=== PATIENT | female | born 1980 | race Caucasian/White ===

== ENCOUNTER → 2022-06-23 11:12 | Outpatient (BNVA) | payer SELFPAY | PROVIDERS: Visit Provider Family Medicine | DX: K42.9 Umbilical hernia without obstruction or gangrene (principal); Z76.89 Persons encountering health services in other specified circumstances | CPT/HCPCS: 80053; 80061; 83721; 84439; 84443; 85025 ==

== ENCOUNTER 2022-07-11 05:34 | Emergency (ER) | payer OTHER, SELFPAY ==
[2022-07-11 05:37] VITALS: BP 171/118; PULSE 111; RESP 18; TEMP 36.5; O2SAT 100; BMI 33.1
[2022-07-11 05:40] VITALS: BP 170/104; PULSE 115; RESP 18; O2SAT 99
--- NOTE | 2022-07-11 05:45 | ECG_ITS ---
[facility] Test Date: 2022-07-11 Pat Name: Tasha iWnn Department: Room: Gender: Female Rhit: : 1980 Requested By: Jae Maxwell Order Number: [id number] Gela MD: Reggie Shetty M.D. Measurements Intervals [place] Rate: 111 P: 30 RI: 116 QRS: 56 QRSD: 95 T: 27 QT: 322 QTc: 438 Interpretive Statements SINUS TACHYCARDIA WITH SHORT RI INTERVAL LOW QRS VOLTAGE IN PRECORDIAL LEADS [QRS DEFLECTION < 1.0 mV IN CHEST LEADS] ABNORMAL RHYTHM ECG No previous ECG available for comparison Electronically Signed On 07-11-2022 7:26:55 CDT by Reggie Shetty M.D. [email or web address]
--- NOTE | 2022-07-11 06:07 | W.ED.NAVMDI ---
HPI - Nausea/Vomiting/Diarrhea General: Chief complaint: Nausea/Vomiting/Diarrhea Stated complaint: bp is high Time Seen by Provider: 07/11/22 05:48 Source: patient Mode of arrival: ambulatory History of Present Illness: 41-year-old female presents emergency room complaining of nausea for last couple days no vertiginous-like symptoms. No chest pain no shortness of breath no abdominal pain no dysuria urgency or frequency no fever sweats or chills no cough she has noticed her blood pressure is not. She has an umbilical hernia that causes some vague discomfort but no significant sharp pain. She has no known history of coronary disease or hypertension. She has not taken anything for blood pressure currently or in the past. She has not been using any decongestants nasal sprays. She does not regularly use any NSAIDs. She did take a single dose of Mucinex when she was not feeling well yesterday. She came in this morning because her blood pressure is elevated. She is not having difficulty with vision speech swallowing gait or sensation. MD elicited complaint: nausea Onset (ago): hour(s) Associated nausea: Yes Associated abdominal pain: No Severity: mild Exacerbating factors: none Relieving factors: none Associated symtoms: Reports nausea; Denies anxiety, bloating, change in vision, chest pain, cough, diaphoresis, decreased urine output, dizziness, dysuria, epistaxis, fatigue, fecal incontinence, fevers/chills, headache(s), anorexia, malaise, myalgias, numbness, palpitations, rash, short of breath, syncope, tenesmus, tinnitus or weakness Review of Systems Const: Denies: fever(s), chills, fatigue, malaise or diaphoresis Eyes: Denies: change in vision ENMT: Denies: tinnitus or epistaxis Card: Denies: chest pain, palpitations or syncope Resp: Denies: dyspnea, productive cough or non-productive cough GI: Reports: nausea; Denies: abdominal pain, vomiting, diarrhea, constipation, bloating, GI cramping or fecal incontinence : Denies: flank pain, difficulty voiding, dysuria, urinary frequency or urinary urgency Skin/Breast: Denies: rash or pruritus Neuro: Denies: headache(s) or dizziness Psych: Denies: anxiety PFSH ED PFSH: Medical History (Updated 07/11/22 @ 07:00 by Jae Merritt DO) Asthma Umbilical hernia Family History Grandmother Cancer Father Diabetes Hypertension Stroke Mother Hypertension Denies family history of CAD (coronary artery disease) Clotting disorder Dementia Hyperlipidemia Psychiatric illness Chronic kidney disease (CKD) Suicide Anesthesia complication Bleeding disorder Family history of premature coronary artery disease Lung disease Social History Smoking and tobacco status: current every day smoker Female Reproductive History: Date of last menstrual period: 06/12/22 Spontaneous abortions: No Physical Exam Const: COMMON NORMALS: no acute distress GENERAL APPEARANCE: cooperative and comfortable ORIENTATION/CONSCIOUSNESS: Yes awake, Yes oriented to person, Yes oriented to place and Yes oriented to time HENMT: COMMON NORMALS: normocephalic, atraumatic and hearing grossly normal bilaterally HEAD & SCALP: normocephalic and atraumatic Eye: COMMON NORMALS: Equal, round and reactive pupils present, EOMs intact bilaterally, conjunctivae normal, no scleral icterus and normal visual garnica by confrontation VISUAL ACUITY: Yes acuity normal VISUAL GARNICA: No peripheral vision loss CONJUNCTIVA: Yes conjunctivae normal PUPIL: Yes Equal, round and reactive pupils present EOM: No Nystagmus present Lymph: LYMPHATIC: no lymphadenopathy noted and no lymphedema noted Resp: COMMON NORMALS: normal respiratory effort, No retractions, No use of accessory muscles and clear to auscultation bilaterally AUSCULTATION: clear to auscultation bilaterally Cardio: COMMON NORMALS: regular rate, regular rhythm and No murmurs present (Cardio) RATE: regular rate RHYTHM: regular rhythm GI: COMMON NORMALS: Soft to palpation and No hepatosplenomegaly present AUSCULTATION: Yes normoactive bowel sounds PALPATION: Yes Soft to palpation, No Tenderness to palpation present (GI), No Guarding due to palpation present (GI) and Yes No hepatosplenomegaly present OTHER: non-incarcerated umbilical hernia Extremity: COMMON NORMALS: normal to inspection, capillary refill normal, no clubbing, cyanosis or edema, no calf tenderness and no pedal edema Neuro: SENSORIUM/ORIENTATION: Yes oriented to person, Yes oriented to place and Yes oriented to time OTHER: No focal neurologic deficits are noted. Facial symmetry normal no visual field deficits sensation to extremity strength all intact. Skin: COMMON NORMALS: no rashes or lesions noted GENERAL SKIN EXAM: no rashes or lesions noted Course Vital Signs: Vital signs: Vital Signs Temperature 97.7 F 07/11/22 05:37 Pulse Rate 97 07/11/22 06:10 Respiratory Rate 17 07/11/22 06:10 Blood Pressure 141/85 07/11/22 06:10 Pulse Oximetry 99 07/11/22 05:40 Oxygen Delivery Me thod 07/11/22 05:40 MDM - Nausea/Vomiting/Diarrhea Medical Decision Making B/P improved after med given. Reccommend she follow up with her primary care physician to review BP in the next week. Medical Records I reviewed the patient's medical records. Lab Data I reviewed the patient's lab results. : 07/11/22 05:53 07/11/22 05:53 Laboratory Results WBC 9.3 10^3/uL (4.0-10.0) 07/11/22 05:53 RBC 4.63 10^6/uL (4.1-5.3) 07/11/22 05:53 Hgb 15.1 g/dL (11.5-15.3) 07/11/22 05:53 Hct 44.8 % (37.0-47.0) 07/11/22 05:53 MCV 96.8 fl (81-99) 07/11/22 05:53 MCH 32.6 pg (28.0-34.0) 07/11/22 05:53 MCHC 33.7 g/dL (30.0-36.0) 07/11/22 05:53 RDW 12.9 % (12.1-15.1) 07/11/22 05:53 Plt Count 351 10^3/cmm (130-400) 07/11/22 05:53 MPV 9.2 fL (7.4-10.4) 07/11/22 05:53 Neut % (Auto) 64.6 % 07/11/22 05:53 Lymph % (Auto) 27.5 % 07/11/22 05:53 [place] % (Auto) 5.1 % 07/11/22 05:53 Eos % (Auto) 1.6 % 07/11/22 05:53 Baso % (Auto) 1.0 % 07/11/22 05:53 Neut # (Auto) 5.99 10^3/uL (1.8-7.7) 07/11/22 05:53 Lymph # (Auto) 2.6 10^3/uL (0.8-4.8) 07/11/22 05:53 [place] # (Auto) 0.5 10^3/uL (0.2-0.9) 07/11/22 05:53 Eos # (Auto) 0.2 10^3/uL (0.0-0.8) 07/11/22 05:53 Baso # (Auto) 0.1 10^3/uL (0.0-0.1) 07/11/22 05:53 Nucleated RBC % (auto) 0 % 07/11/22 05:53 Nucleated RBCs # 0.0 /100WBC 07/11/22 05:53 Sodium 138 mmol/L (136-145) 07/11/22 05:53 Potassium 3.9 mmol/L (3.5-5.1) 07/11/22 05:53 Chloride 104 mmol/L (98-107) 07/11/22 05:53 Carbon Dioxide 24 mmol/L (22-29) 07/11/22 05:53 Anion Gap 13.9 (5-19) 07/11/22 05:53 BUN 12 mg/dL (6-20) 07/11/22 05:53 Creatinine 0.7 mg/dL (0.5-0.9) 07/11/22 05:53 GFR Calculation 92.2 mL/min (90-130) 07/11/22 05:53 Glucose 112 mg/dL (65-115) 07/11/22 05:53 Calculated Osmolality 287 mOsm/kg (285-295) 07/11/22 05:53 Calcium 9.2 mg/dL (8.5-10.5) 07/11/22 05:53 Total Bilirubin 0.2 mg/dL (0.15-1.2) 07/11/22 05:53 AST 32 U/L (0-32) 07/11/22 05:53 ALT 45 U/L (0-33) H 07/11/22 05:53 Alkaline Phosphatase 76 U/L (35-105) 07/11/22 05:53 C-Reactive Protein 3.0 mg/L (0.0-4.9) 07/11/22 05:53 Total Protein 7.0 g/dL (6.6-8.7) 07/11/22 05:53 Albumin 4.2 g/dL (3.5-5.2) 07/11/22 05:53 Globulin 2.8 g/dL (1.3-4.6) 07/11/22 05:53 Lipase 12 U/L (13-60) L 07/11/22 05:53 HCG, Qual Negative (Negative) 07/11/22 05:53 Discharge Plan Discharge Patient Disposition: Home Clinical Impression: Elevated blood pressure reading without diagnosis of hypertension Condition: Stable Prescriptions: No Action albuterol sulfate 90 mcg/actuation HFA aerosol inhaler 2 inh inhalation QID PRN (Reason: shortness of breath or wheezing) Qty: 8.5 0RF ondansetron 4 mg tablet,disintegrating 4 mg PO Q6H PRN (Reason: nausea and vomiting) Qty: 15 0RF Discharge Orders: Discharge ED (Routine); Ordered 07/11/22 Ordered By: Jae Merritt Discharge Diet: Usual diet Discharge Activity: Increase activity as tolerated Activity Restrictions/Additional Instructions: Follow-up with your primary care doctor within the next week to reevaluate your blood pressure. Coding Level of Care Code ED Power Line Installer for Chg Fwd Exam Comprehensive
[2022-07-11] MEDS: metoprolol succinate ER (24 HR) 25 mg Tablet 12.5 MG PO (06:08)
[2022-07-11 06:09] LABS: Basophils # 0.1 10^3/uL (0.0-0.1); Eosinophils # 0.2 10^3/uL (0.0-0.8); Eosinophils % 1.6 %; Hematocrit 44.8 % (37.0-47.0); Hemoglobin 15.1 g/dL (11.5-15.3); Lymphocytes # 2.6 10^3/uL (0.8-4.8); Lymphocytes % 27.5 %; Mean Corpuscular HGB Conc 33.7 g/dL (30.0-36.0); Mean Corpuscular Hemoglobin 32.6 pg (28.0-34.0); Mean Corpuscular Volume 96.8 fl (81-99); Mean Platelet Volume 9.2 fL (7.4-10.4); Monocytes # 0.5 10^3/uL (0.2-0.9); Monocytes % 5.1 %; Neutrophils # 5.99 10^3/uL (1.8-7.7); Neutrophils % 64.6 %; Nucleated Red Blood Cells % 0 %; Platelet Count 351 10^3/cmm (130-400); Red Blood Count 4.63 10^6/uL (4.1-5.3); Red Cell Distribution Width 12.9 % (12.1-15.1); White Blood Count 9.3 10^3/uL (4.0-10.0)
[2022-07-11] MEDS: metoprolol tartrate 1 mg/1 mL SDV 5 mL 2.5 MG IVP (06:09)
[2022-07-11 06:10] VITALS: BP 141/85; PULSE 97; RESP 17
[2022-07-11 06:21] LABS: HCG, Serum Qual Negative (Negative)
[2022-07-11 06:26] LABS: Alanine Aminotransferase 45 U/L (0-33); Albumin Level 4.2 g/dL (3.5-5.2); Alkaline Phosphatase 76 U/L (35-105); Anion Gap 13.9 (5-19); Aspartate Amino Transferase 32 U/L (0-32); Blood Urea Nitrogen 12 mg/dL (6-20); Calcium 9.2 mg/dL (8.5-10.5); Carbon Dioxide 24 mmol/L (22-29); Chloride 104 mmol/L (98-107); Globulin 2.8 g/dL (1.3-4.6); Glomerular Filtration Rate 92.2 mL/min (90-130); Glucose 112 mg/dL (65-115); Lipase 12 U/L (13-60); Osmolality Calculated 287 mOsm/kg (285-295); Potassium 3.9 mmol/L (3.5-5.1); Sodium 138 mmol/L (136-145); Total Bilirubin 0.2 mg/dL (0.15-1.2)
[2022-07-11 07:12] VITALS: BP 126/84; PULSE 89; RESP 18; O2SAT 96
== END 2022-07-11 07:13 | disposition home or self-care (01) ==
PROVIDERS: Emergency Medicine; Emergency Provider Family Medicine
DX: R03.0 Elevated blood-pressure reading, without diagnosis of hypertension (principal); F17.210 Nicotine dependence, cigarettes, uncomplicated
CPT/HCPCS: 80053; 83690; 84703; 85025; 86140; 93005; 96374; 99284; J3490

== ENCOUNTER 2023-01-13 14:48 | Outpatient (CLI) | payer OTHER, SELFPAY ==
--- NOTE | 2023-01-13 15:15 | USCV_ITS ---
Tasha Winn Age: 42 Gender: F : 1980 Exam Date: 01/13/2023 15:01 Ordering Phys: Roc Orantes DO Technologist: Exam Location: [facility] [place] Indication: left leg pain, swelling Risk Factors: Unknown Previous Vascular Surgery: None RIGHT LEFT BP: 120.0 / 70.00 BP: 120.0/ 70.00 0 0 Waveform Velocity (cm/s) Velocity (cm/s) Waveform Iliac Prox 114.7 Triphasic Iliac Mid 109.2 Triphasic Iliac Distal 105.3 Triphasic CONDOMINIUM MANAGER 99.2 Triphasic SFA Prox 113.6 Triphasic SFA Mid 113.6 Triphasic SFA Dist 97.0 Triphasic POP 65.1 Triphasic SUEDE CLEANER 77.2 Triphasic DPA 54.0 Triphasic HANNAH 1.0 FINDINGS RT DPA 120 RT SUEDE CLEANER 120 LEFT [id number] LEFT SUEDE CLEANER 120 The arterial duplex examination was performed only on the left lower extremity. The resting HANNAH was 1.0 on the left side. Normal arterial Doppler waveforms and Doppler velocities. CONCLUSIONS 1. Normal resting HANNAH, arterial Doppler waveforms and Doppler flow velocities on the left side, suggesting no significant arterial obstruction Dr Sherice Bradshaw MD [facility] (Electronically Signed) Final Date: 14 January 2023 14:01 S
== END 2023-01-13 14:49 | disposition home or self-care (01) ==
LOC: RAD 14:52
PROVIDERS: PCP Family Medicine; Visit Provider Family Medicine
DX: M79.89 Other specified soft tissue disorders (principal); M79.605 Pain in left leg
CPT/HCPCS: 93926

== ENCOUNTER → 2023-01-19 08:51 | Outpatient (BNVA) | payer OTHER, SELFPAY | PROVIDERS: PCP Family Medicine; Visit Provider Family Medicine | DX: M79.89 Other specified soft tissue disorders (principal) | CPT/HCPCS: 80048; 84443; 84550 ==

== ENCOUNTER → 2023-03-13 07:58 | Outpatient (BNVA) | payer OTHER, SELFPAY | PROVIDERS: PCP Family Medicine; Visit Provider Nurse Practitioner Family | DX: R68.89 Other general symptoms and signs (principal) | CPT/HCPCS: 87400 ==

== ENCOUNTER 2023-06-06 05:24 | Emergency (ER) | payer OTHER, SELFPAY ==
[2023-06-06 05:31] VITALS: BP 149/104; PULSE 112; RESP 18; TEMP 36.9; O2SAT 98; BMI 35.4
[2023-06-06 05:35] VITALS: BP 149/104; PULSE 110; RESP 16; O2SAT 100
--- NOTE | 2023-06-06 05:57 | ED_ITS ---
HPI - General Adult General: Chief complaint: General Medical Stated complaint: N\V\Pressure in Ears Time Seen by Provider: 06/06/23 05:44 Source: patient Mode of arrival: ambulatory History of Present Illness: 42-year-old female presents emergency room with 2 to 3 days of ear fullness congestion dizziness. It has made her little bit sick to her stomach at times. No difficulty speech swallowing or gait. No shortness of breath or cough. She has had a couple of episodes of vomiting no hematemesis or coffee-ground emesis. Onset (ago): day(s) Exacerbating factors: none Associated symptoms: Reports vomiting; Deny chest pain, confusion, cough, diaphoresis, decreased appetite, dyspnea, fevers/chills, headache(s), malaise, nausea, rash, palpitations, seizures, short of breath, syncope, weakness or other Treatments prior to arrival: none Review of Systems Const: Denies: fever(s), chills, malaise or diaphoresis ENMT: Reports: ear or mastoid pain and ear discharge; Denies: throat pain, nasal discharge or nasal congestion Card: Denies: chest pain, palpitations or syncope Resp: Denies: dyspnea GI: Reports: vomiting; Denies: abdominal pain or nausea : Denies: flank pain, difficulty voiding, dysuria, urinary frequency or urinary urgency Skin/Breast: Denies: rash Neuro: Denies: headache(s) or confusion PFS ED PFSH: Medical History Asthma Umbilical hernia Family History Grandmother Cancer Father Diabetes Hypertension Stroke Mother Hypertension Denies family history of CAD (coronary artery disease) Clotting disorder Dementia Hyperlipidemia Psychiatric illness Chronic kidney disease (CKD) Suicide Anesthesia complication Bleeding disorder Family history of premature coronary artery disease Lung disease Social History Smoking and tobacco status: never smoked Female Reproductive History: Date of last menstrual period: 06/06/23 Spontaneous abortions: No Physical Exam Const: GENERAL APPEARANCE: cooperative and comfortable ORIENTATION/CONSCIOUSNESS: Yes awake, Yes oriented to person, Yes oriented to place and Yes oriented to time HENMT: COMMON NORMALS: normocephalic, atraumatic, hearing grossly normal bilaterally, external ears normal, EAC's normal, Normal nasal mucous membranes and turbinates present, moist oral mucous membranes and oropharynx normal HEAD & SCALP: normocephalic and atraumatic NOSE: Normal nasal mucous membranes and turbinates present EXTERNAL EAR: Yes external ears normal EXTERNAL AUDITORY CANAL: EAC's normal TYMPANIC MEMBRANE: TM abnormal TM laterality: bilateral bulging, wth effusion and with fluid behind the TM Eye: COMMON NORMALS: Equal, round and reactive pupils present, EOMs intact bilaterally, conjunctivae normal and no scleral icterus CONJUNCTIVA: Yes conjunctivae normal PUPIL: Yes Equal, round and reactive pupils present Neck/C-Spine: COMMON NORMALS: full ROM, no lymphadenopathy, supple and no JVD Lymph: LYMPHATIC: no lymphadenopathy noted and no lymphedema noted Resp: COMMON NORMALS: normal respiratory effort, No retractions, No use of accessory muscles and clear to auscultation bilaterally AUSCULTATION: clear to auscultation bilaterally Cardio: COMMON NORMALS: no JVD, regular rate, regular rhythm and No murmurs present (Cardio) RATE: regular rate RHYTHM: regular rhythm GI: COMMON NORMALS: Soft to palpation and No hepatosplenomegaly present AUSCULTATION: Yes normoactive bowel sounds PALPATION: Yes Soft to palpation, No Tenderness to palpation present (GI), No Guarding due to palpation present (GI) and Yes No hepatosplenomegaly present Extremity: COMMON NORMALS: normal to inspection, capillary refill normal, no clubbing, cyanosis or edema, no calf tenderness and no pedal edema Neuro: SENSORIUM/ORIENTATION: Yes oriented to person, Yes oriented to place and Yes oriented to time Skin: COMMON NORMALS: no rashes or lesions noted GENERAL SKIN EXAM: no rashes or lesions noted Course Vital Signs: Vital signs: Vital Signs Temperature 98.5 F 06/06/23 06:17 Pulse Rate 93 06/06/23 06:17 Respiratory Rate 16 06/06/23 06:17 Blood Pressure 133/89 06/06/23 06:17 Pulse Oximetry 98 06/06/23 06:17 Oxygen Delivery Me thod Room Air 06/06/23 05:31 [facility] - General Adult Medical Decision Making Bilateral fluid effusions with mild erythema. Started on oral antibiotics for 10 days. Follow-up with primary care if not improving or has any worsening. Medical Records I reviewed the patient's medical records. Discharge Plan Discharge Patient Disposition: Home Clinical Impression: Otitis media Condition: Stable Prescriptions: New amoxicillin 875 mg tablet 875 mg PO BID Qty: 20 0RF No Action fluticasone propionate [Flonase Allergy Relief] 50 mcg/actuation spray,suspension 2 spray intranasal DAILY Rx Instructions: administer into each nostril prednisone 20 mg tablet 20 mg PO DAILY 3 Days Qty: 3 0RF albuterol sulfate 90 mcg/actuation HFA aerosol inhaler See Rx Instructions .ROUTE .COMPLEX Qty: 8.5 0RF Dose Instruction: INHALE 2 PUFFS FOUR TIMES DAILY NEEDED FOR SHORTNESS OF BREATH OR WHEEZING. Rx Instructions: INHALE 2 PUFFS FOUR TIMES DAILY NEEDED FOR SHORTNESS OF BREATH OR WHEEZING. montelukast 10 mg tablet See Rx Instructions .ROUTE .COMPLEX Qty: 30 0RF Dose Instruction: TAKE 1 TABLET BY MOUTH DAILY Rx Instructions: TAKE 1 TABLET BY MOUTH DAILY Discharge Orders: Discharge ED (Routine); Ordered 06/06/23 Ordered By: Jae Merritt Referrals: Roc Orantes DO [Primary Care Provider] - Patient Instructions: Opioid Safety, Pain Management Activity Restrictions/Additional Instructions: If not improving follow-up with your primary care doctor. Coding Level of Care Code ED Medical Office Secretary for Murtaza Briceño
[2023-06-06 06:15] VITALS: BP 133/89; PULSE 93; RESP 16; O2SAT 98
[2023-06-06 06:17] VITALS: BP 133/89; PULSE 93; RESP 16; TEMP 36.9; O2SAT 98
== END 2023-06-06 06:18 | disposition home or self-care (01) ==
PROVIDERS: Emergency Provider Family Medicine; PCP Family Medicine
DX: H66.90 Otitis media, unspecified, unspecified ear (principal)
CPT/HCPCS: 99283

== ENCOUNTER 2023-06-19 09:51 | Emergency (ER) | payer OTHER, SELFPAY ==
[2023-06-19 10:03] VITALS: BP 157/97; PULSE 108; RESP 17; TEMP 37.3; O2SAT 96; BMI 34.7
--- NOTE | 2023-06-19 10:20 | CT_ITS ---
WS: [id number] CT HEAD TECHNIQUE: Noncontrast CT of the head obtained from the skullbase to the vertex. CLINICAL INFORMATION: dizziness, sanford, heaviness in head COMPARISON: MRI 2008 DLP: 1116.[address] scans at [facility] use at least one of these dose optimization techniques: automated e xposure control; mA and/or kV adjustment per patient size (includes targeted exams where dose is matc hed to clinical indication); or iterative reconstruction. FINDINGS: No evidence of intracranial hemorrhage or mass effect. Ventricular system and basal cisterns are silva nt. No extra-axial fluid collections. No evidence of mass or mass effect. Normal candelario-white different iation. Paranasal sinuses and mastoid air cells are well aerated. .Normal visualized soft tissues. CT/CT head wo con* [id number] IMPRESSION: 1. No evidence of intracranial hemorrhage or mass effect. 2. No acute intracranial findings.
[2023-06-19 10:41] VITALS: BP 156/102; PULSE 106; O2SAT 95
[2023-06-19 10:44] LABS: Basophils # 0.1 10^3/uL (0.0-0.1); Basophils % 0.6 %; Eosinophils # 0.2 10^3/uL (0.0-0.8); Eosinophils % 1.3 %; Hematocrit 43.5 % (37.0-47.0); Hemoglobin 14.7 g/dL (11.5-15.3); Lymphocytes # 4.3 10^3/uL (0.8-4.8); Lymphocytes % 25.9 %; Mean Corpuscular HGB Conc 33.8 g/dL (30.0-36.0); Mean Corpuscular Hemoglobin 31.9 pg (28.0-34.0); Mean Corpuscular Volume 94.4 fl (81-99); Mean Platelet Volume 8.7 fL (7.4-10.4); Monocytes # 0.8 10^3/uL (0.2-0.9); Monocytes % 4.7 %; Neutrophils % 66.7 %; Nucleated Red Blood Cells % 0 %; Platelet Count 357 10^3/cmm (130-400); Red Blood Count 4.61 10^6/uL (4.1-5.3); Red Cell Distribution Width 12.9 % (12.1-15.1); White Blood Count 16.7 10^3/uL (4.0-10.0)
--- NOTE | 2023-06-19 10:55 | ED_ITS ---
HPI - Dizziness General: Chief Complaint: Dizziness Stated Complaint: high bp Time Seen by Provider: 06/19/23 10:18 History of Present Illness: HPI Narrative: Patient presents to the ER with complaints of dizziness and lightheadedness for at least 2 weeks. Patient states that this is intermittent and getting better and getting worse but not totally going away. Patient does states she has had spells of diaphoresis during these time periods she also went to see her doctor last Monday and was put on an antibiotic and a steroid for possible ear infection she has completed and both with no major improvements in her head. Patient does admit to having high blood pressure with the highest being approximately 160/120 and a fast heart rate in the 100s. Review of Systems General: Reports: 10 or more systems reviewed and unremarkable except in HPI and below PFSH ED PFSH: Medical History Asthma Umbilical hernia Family History Grandmother Cancer Father Diabetes Hypertension Stroke Mother Hypertension Denies family history of CAD (coronary artery disease) Clotting disorder Dementia Hyperlipidemia Psychiatric illness Chronic kidney disease (CKD) Suicide Anesthesia complication Bleeding disorder Family history of premature coronary artery disease Lung disease Social History Smoking and tobacco status: never smoked Female Reproductive History: Spontaneous abortions: No Physical Exam Const: COMMON NORMALS: no acute distress, average body habitus, patient oriented x3, no limitations, healthy appearing, alert and well nourished HENMT: COMMON NORMALS: normocephalic, atraumatic, hearing grossly normal bilaterally, external ears normal, EAC's normal, TM's normal bilaterally, Normal external nose present, Normal nasal mucous membranes and turbinates present, moist oral mucous membranes and oropharynx normal HEAD & SCALP: normocephalic and atraumatic NOSE: Normal external nose present and Normal nasal mucous membranes and turbinates present EXTERNAL EAR: Yes external ears normal EXTERNAL AUDITORY CANAL: EAC's normal TYMPANIC MEMBRANE: TM's normal bi laterally Eye: COMMON NORMALS: Equal, round and reactive pupils present, EOMs intact bilaterally, conjunctivae normal, no scleral icterus and no papilledema CONJUNCTIVA: Yes conjunctivae normal PUPIL: Yes Equal, round and reactive pupils present DIRECT OPHTHALMOSCOPY: Yes no papilledema Neuro: COMMON NORMALS: patient oriented x3 SENSORIUM/ORIENTATION: Yes alert Course Vital Signs: Vital signs: Vital Signs Temperature 99.1 F 06/19/23 10:03 Pulse Rate 102 H 06/19/23 11:37 Respiratory Rate 18 06/19/23 11:37 Blood Pressure 133/89 06/19/23 11:37 Pulse Oximetry 94 06/19/23 11:37 Oxygen Delivery Me thod Room Air 06/19/23 11:37 MDM - Dizziness Medical Decision Making Patient presents to the ER with several week history of being lightheaded dizzy. Patient's failed outpatient therapy of steroids and antibiotics for this. Patient had similar episode years in the past when she took meclizine for which seem to work pretty decent. Lab work was reviewed patient a white count is slightly elevated at 16 which is thought to be due to her recent steroid use otherwise rest of her blood work and head CT was negative. Patient will be discharged with a diagnosis of vertigo and be given more meclizine to take on an as-needed basis. Patient is to follow-up with her PCP. Lab Data 06/19/23 10:35 06/19/23 10:[address] 06/19/23 10:20 IMPRESSION: 1. No evidence of intracranial hemorrhage or mass effect. 2. No acute intracranial findings. Laboratory Results WBC 16.7 10^3/uL (4.0-10.0) H 06/19/23 10:35 RBC 4.61 10^6/uL (4.1-5.3) 06/19/23 10:35 Hgb 14.7 g/dL (11.5-15.3) 06/19/23 10:35 Hct 43.5 % (37.0-47.0) 06/19/23 10:35 MCV 94.4 fl (81-99) 06/19/23 10:35 MCH 31.9 pg (28.0-34.0) 06/19/23 10:35 MCHC 33.8 g/dL (30.0-36.0) 06/19/23 10:35 RDW 12.9 % (12.1-15.1) 06/19/23 10:35 Plt Count 357 10^3/cmm (130-400) 06/19/23 10:35 MPV 8.7 fL (7.4-10.4) 06/19/23 10:35 Neut % (Auto) 66.7 % 06/19/23 10:35 Lymph % (Auto) 25.9 % 06/19/23 10:35 [place] % (Auto) 4.7 % 06/19/23 10:35 Eos % (Auto) 1.3 % 06/19/23 10:35 Baso % (Auto) 0.6 % 06/19/23 10:35 Neut # (Auto) 11.10 10^3/uL (1.8-7.7) H 06/19/23 10:35 Lymph # (Auto) 4.3 10^3/uL (0.8-4.8) 06/19/23 10:35 [place] # (Auto) 0.8 10^3/uL (0.2-0.9) 06/19/23 10:35 Eos # (Auto) 0.2 10^3/uL (0.0-0.8) 06/19/23 10:35 Baso # (Auto) 0.1 10^3/uL (0.0-0.1) 06/19/23 10:35 Nucleated RBC % (auto) 0 % 06/19/23 10:35 Nucleated RBCs # 0.0 /100WBC 06/19/23 10:35 Sodium 138 mmol/L (136-145) 06/19/23 10:35 Potassium 4.2 mmol/L (3.5-5.1) 06/19/23 10:35 Chloride 103 mmol/L (98-107) 06/19/23 10:35 Carbon Dioxide 22 mmol/L (22-29) 06/19/23 10:35 Anion Gap 17.2 (5-19) 06/19/23 10:35 BUN 15 mg/dL (6-20) 06/19/23 10:35 Creatinine 0.9 mg/dL (0.5-0.9) 06/19/23 10:35 GFR Calculation 68.7 mL/min (90-130) L 06/19/23 10:35 Glucose 99 mg/dL (65-115) 06/19/23 10:35 Calculated Osmolality 287 mOsm/kg (285-295) 06/19/23 10:35 Calcium 8.8 mg/dL (8.5-10.5) 06/19/23 10:35 Magnesium 1.9 mg/dL (1.7-2.3) 06/19/23 10:35 Total Bilirubin 0.3 mg/dL (0.15-1.2) 06/19/23 10:35 AST 17 U/L (0-32) 06/19/23 10:35 ALT 25 U/L (0-33) 06/19/23 10:35 Alkaline Phosphatase 61 U/L (35-105) 06/19/23 10:35 C-Reactive Protein 3.0 mg/L (0.0-4.9) 06/19/23 10:35 Total Protein 6.6 g/dL (6.6-8.7) 06/19/23 10:35 Albumin 4.0 g/dL (3.5-5.2) 06/19/23 10:35 Globulin 2.6 g/dL (1.3-4.6) 06/19/23 10:35 Discharge Plan Discharge Patient Disposition: Home Clinical Impression: Benign paroxysmal positional vertigo Condition: Stable Prescriptions: New Medi-Meclizine 25 mg tablet 25 mg PO TID PRN (Reason: dizziness) Qty: 30 0RF No Action fluticasone propionate [Flonase Allergy Relief] 50 mcg/actuation spray,suspension 2 spray intranasal DAILY Rx Instructions: administer into each nostril montelukast 10 mg tablet See Rx Instructions .ROUTE .COMPLEX Qty: 90 3RF Dose Instruction: TAKE 1 TABLET BY MOUTH DAILY Rx Instructions: TAKE 1 TABLET BY MOUTH DAILY albuterol sulfate 90 mcg/actuation HFA aerosol inhaler See Rx Instructions .ROUTE .COMPLEX Qty: 8.5 4RF Dose Instruction: INHALE 2 PUFFS BY MOUTH FOUR TIMES DAILY NEEDED FOR SHORTNESS OF BREATH OR WHEEZING Rx Instructions: INHALE 2 PUFFS BY MOUTH FOUR TIMES DAILY NEEDED FOR SHORTNESS OF BREATH OR WHEEZING B Complex Tablet Extended Release 1 tab PO DAILY lansoprazole [Prevacid] 30 mg Capsule,Delayed Release(Dr/Ec) 30 mg PO DAILY Discharge Orders: Discharge ED (Routine); Ordered 06/19/23 Ordered By: Arnoldo Camara Referrals: Roc Orantes DO [Primary Care Provider] - 1 week Patient Instructions: Dizziness (ED) Activity Restrictions/Additional Instructions: Take meclizine as needed as prescribed for dizziness. Please follow-up with your family practice physician for further evaluation testing and/or referral Coding Level of Care Code ED Canal Driver for Murtaza Briceño
[2023-06-19 11:06] LABS: Slide Review Slide Review Perform
[2023-06-19 11:09] LABS: Alanine Aminotransferase 25 U/L (0-33); Alkaline Phosphatase 61 U/L (35-105); Anion Gap 17.2 (5-19); Aspartate Amino Transferase 17 U/L (0-32); Blood Urea Nitrogen 15 mg/dL (6-20); Calcium 8.8 mg/dL (8.5-10.5); Carbon Dioxide 22 mmol/L (22-29); Chloride 103 mmol/L (98-107); Globulin 2.6 g/dL (1.3-4.6); Glomerular Filtration Rate 68.7 mL/min (90-130); Glucose 99 mg/dL (65-115); Magnesium 1.9 mg/dL (1.7-2.3); Osmolality Calculated 287 mOsm/kg (285-295); Potassium 4.2 mmol/L (3.5-5.1); Sodium 138 mmol/L (136-145); Total Bilirubin 0.3 mg/dL (0.15-1.2); Total Protein 6.6 g/dL (6.6-8.7)
[2023-06-19 11:37] VITALS: BP 133/89; PULSE 102; PULSE 92; RESP 18; O2SAT 94
[2023-06-19 12:05] VITALS: BP 133/89; PULSE 105; O2SAT 95
== END 2023-06-19 12:08 | disposition home or self-care (01) ==
PROVIDERS: Emergency Provider Emergency Medicine; PCP Family Medicine
DX: H81.10 Benign paroxysmal vertigo, unspecified ear (principal)
CPT/HCPCS: 36415; 70450; 80053; 83735; 85025; 86140; 99284

== ENCOUNTER 2024-05-24 08:00 | Outpatient (CLI) | payer OTHER, SELFPAY ==
--- NOTE | 2024-05-24 07:33 | MR_ITS ---
WS: [id number] MRI NECK WITH CONTRAST TECHNIQUE: Noncontrast axial T1, axial T2 FSE fat sat, coronal T2 fat sat, coronal T1, coronal T1 fat sat, sagittal T2 fat sat, plus contrast enhanced coronal, sagittal, and axial T1 fat sat images obta ined. CLINICAL INFORMATION: PSEUDOTUMOR CEREBRI COMPARISON: MRI [address] 2022 FINDINGS: Increased fluid in the optic nerve sheaths with associated scleral flattening. Suggestion of mild equ ivocal narrowing of the lateral ventricles. Findings can be seen with pseudotumor cerebri in the appr opriate clinical setting.. No evidence of restricted diffusion to suggest acute ischemia. Ventricular system and basal cisterns are patent. No suspicious intracranial signal abnormalities. Normal posterior fossa. Normal vascular flow voids at the skull base. No extra-axial fluid collections. No loss of mass or mass effect. Paran tone sinuses are well aerated. Mucosal thickening in the mastoid air cells. Temporal lobes and hippocampal formations are normal in appearance. Normal optic chiasm. No evidence of optic nerve edema or optic neuritis. Normal visualized rectus muscles. 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 No abnormal gadolinium enhancement. No hydrocephalus. No transependymal edema. Dural venous sinuses a ppear patent. MR/MR orbit face neck wo/w* [id number] IMPRESSION: 1. No evidence of restricted diffusion to suggest acute ischemia. 2. No suspicious intracranial signal abnormalities 3. Increased fluid in the optic nerve sheaths with associated scleral flatteni ng can be seen with pseudotumor cerebri in the appropriate clinical setting 4. Mild equivocal narrowing of the lateral ventricles can also be seen with ps eudotumor cerebri. 5. 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 N o compression of the optic chiasm. Infundibulum appears normal. 6. No other acute findings.
[2024-05-24] MEDS: gadobenate dimeglumine 20 mL vial IV (08:20)
== END 2024-05-24 08:01 | disposition home or self-care (01) ==
PROVIDERS: PCP Family Medicine; Visit Provider Student in an Organized Health Care Education/Training Program
DX: G93.2 Benign intracranial hypertension (principal); H47.10 Unspecified papilledema; H15.89 Other disorders of sclera; E23.6 Other disorders of pituitary gland
CPT/HCPCS: 70543; A9577

== ENCOUNTER → 2024-08-22 13:00 | Outpatient (BNVA) | payer OTHER, SELFPAY | PROVIDERS: PCP Family Medicine; Visit Provider Family Medicine | DX: J45.909 Unspecified asthma, uncomplicated (principal); J30.1 Allergic rhinitis due to pollen; I10 Essential (primary) hypertension | CPT/HCPCS: 80053; 80061; 83721 ==

== ENCOUNTER 2024-09-23 04:04 | Emergency (ER) | payer OTHER, SELFPAY ==
[2024-09-23 04:04] VITALS: BP 162/106; PULSE 93; RESP 20; TEMP 36.8; O2SAT 96; BMI 35.4
--- NOTE | 2024-09-23 04:21 | XRR_ITS ---
PROCEDURE INFORMATION: Exam: XR Chest Exam date and time: 09/23/2024 4:25 AM Age: 43 years old Clinical indication: Cough and shortness of breath; Patient HX: Cough with SOB; Additional info: Cough SOB TECHNIQUE: Imaging protocol: Radiologic exam of the chest. Views: 1 view. COMPARISON: MR orbit face neck wo/w* [id number] 05/24/2024 7:40 AM FINDINGS: Lungs: Unremarkable. No consolidation. Pleural spaces: Unremarkable. No pleural effusion. No pneumothorax. Heart/Mediastinum: Unremarkable. No cardiomegaly. Bones/joints: Unremarkable. XR/XR chest 1V portable [id number] IMPRESSION: No acute findings.
--- NOTE | 2024-09-23 04:28 | W.ED.SOB ---
HPI - SOB/Dyspnea General: Chief Complaint: Upper Respiratory Infection Stated Complaint: trouble breathing Time Seen by Provider: 09/23/24 04:21 History of Present Illness: HPI Narrative: 43-year-old female says she has been sick for over a week. She went into the clinic at her work, and was placed on azithromycin, and her last day is today. She states that she is not really any better. She has been using her inhaler at home with minimal improvement. She has a nebulizer machine, but does not have medication for it. She has not had fever. She is getting very little sputum up she says. Related Data Home Medications Medication Instructions Recorded Confirmed fluticasone propionate 50 2 spray intranasal DAILY 03/13/23 09/11/24 mcg/actuation nasal spray,suspension (Flonase Allergy Relief) lansoprazole 30 mg capsule,delayed 30 mg PO DAILY 06/19/23 09/11/24 release (Prevacid) vitamin B complex 1 tab PO DAILY 06/19/23 09/11/24 Previous Rx's Medication Instructions Recorded meclizine 25 mg tablet 25 mg PO TID PRN dizziness #30 tabs 06/19/23 (Medi-Meclizine) albuterol sulfate 90 mcg/actuation See Rx Instructions .Route 08/22/24 aerosol inhaler .COMPLEX #8.5 ea azelastine 137 mcg-fluticasone 50 1 spray intranasal BID #23 grams 08/22/24 mcg/spray nasal spray chlorthalidone 25 mg tablet 25 mg PO DAILY #30 tabs 08/22/24 montelukast 10 mg tablet 10 mg PO DAILY 90 days #90 tabs 08/22/24 doxycycline hyclate 100 mg tablet 100 mg PO BID 7 days #14 tabs 09/23/24 ipratropium 0.5 mg-albuterol 3 mg 3 ml inhalation Q4H PRN shortness 09/23/24 (2.5 mg base)/3 mL nebulization of breath #90 mL soln prednisone 20 mg tablet 60 mg (3 x 20 mg) PO DAILY 5 days 09/23/24 #15 tabs Allergies Allergy/AdvReac Type Severity Reaction Status Date / Time No Known Allergies Allergy Verified 09/23/24 04:13 [facility] ED PFSH: Medical History Asthma Umbilical hernia Family History Grandmother Cancer Father Diabetes Hypertension Stroke Mother Hypertension Denies family history of CAD (coronary artery disease) Clotting disorder Dementia Hyperlipidemia Psychiatric illness Chronic kidney disease (CKD) Suicide Anesthesia complication Bleeding disorder Family history of premature coronary artery disease Lung disease Social History Smoking and tobacco/nicotine status: current every day tobacco/nicotine user Female Reproductive History: Spontaneous abortions: No Physical Exam Const: COMMON NORMALS: no acute distress GENERAL APPEARANCE: cooperative; not ill appearing and not frail appearing HENMT: COMMON NORMALS: normocephalic, atraumatic and Normal external nose present HEAD & SCALP: normocephalic and atraumatic FACE & SINUS: normal facial exam and face symmetric NOSE: Normal external nose present Eye: COMMON NORMALS: Equal, round and reactive pupils present and EOMs intact bilaterally PUPIL: Yes Equal, round and reactive pupils present Neck/C-Spine: GENERAL: Yes trachea midline Chest: CHEST: Yes Symmetrical chest wall rise Resp: EFFORT & INSPECTION: Yes tachypneic and Yes Actively coughing AUSCULTATION: rhonchi and wheezes Cardio: COMMON NORMALS: regular rate and regular rhythm RATE: regular rate RHYTHM: regular rhythm GI: COMMON NORMALS: Normal to inspection, nondistended, normoactive bowel sounds present Extremity: COMMON NORMALS: no pedal edema Neuro: EVA COMA SCALE: document GCS findings [place] coma scale eye opening: Spontaneous Eva coma scale verbal response: Orientated Eva coma scale motor response: Obey commands Eva coma scale total score: 15 SENSORY EXAM: Yes extremities (intact) Psych: COMMON NORMALS: speech normal SPEECH: Yes normal speech Skin: COMMON NORMALS: no rashes or lesions noted GENERAL SKIN EXAM: no rashes or lesions noted Course Vital Signs: Vital signs: Vital Signs Temperature 98.3 F 09/23/24 04:04 Pulse Rate 92 09/23/24 04:34 Respiratory Rate 18 09/23/24 04:34 Blood Pressure 162/106 09/23/24 04:04 Pulse Oximetry 97 09/23/24 04:34 Oxygen Delivery Me thod Room Air 09/23/24 04:34 MDM - SOB/Dyspnea Medical Decision Making Saturations are good. She is afebrile. Chest x-ray shows no consolidation. Normal heart size. No vascular congestion or effusions. She is somewhat better after nebulizer treatment here. Home on prednisone, antibiotics, nebulizers scheduled for the next 48 hours. Lab Data Labs/Radiology: Radiology Impressions Chest X-Ray 09/23/24 04:21 IMPRESSION: No acute findings. All radiology interpretation(s) finalized by discharge Discharge Plan Discharge Patient Disposition: Home Clinical Impression: Allergic asthma Acute bronchitis Qualifiers: Bronchitis organism: unspecified organism Qualified Code(s): J20.9 - Acute bronchitis, unspecified Condition: Stable Prescriptions: New doxycycline hyclate 100 mg tablet 100 mg PO BID 7 Days Qty: 14 0RF prednisone 20 mg tablet 60 mg PO DAILY 5 Days Qty: 15 0RF ipratropium-albuterol 0.5 mg-3 mg(2.5 mg base)/3 mL solution for nebulization 3 ml inhalation Q4H PRN (Reason: shortness of breath) Qty: 90 0RF Rx Instructions: until breathing returns to target peak flow/parameters No Action fluticasone propionate [Flonase Allergy Relief] 50 mcg/actuation spray,suspension 2 spray intranasal DAILY Rx Instructions: administer into each nostril albuterol sulfate 90 mcg/actuation HFA aerosol inhaler See Rx Instructions .ROUTE .COMPLEX Qty: 8.5 5RF Dose Instruction: INHALE 2 PUFFS BY MOUTH 4 TIMES DAILY NEEDED FOR SHORTNESS OF BREATH OR WHEEZING Rx Instructions: INHALE 2 PUFFS BY MOUTH 4 TIMES DAILY NEEDED FOR SHORTNESS OF BREATH OR WHEEZING montelukast 10 mg tablet 10 mg PO DAILY 90 Days Qty: 90 3RF azelastine-fluticasone 137-50 mcg/spray spray,non-aerosol 1 spray intranasal BID Qty: 23 2RF Rx Instructions: administer into each nostril chlorthalidone 25 mg tablet 25 mg PO DAILY Qty: 30 2RF B Complex Tablet Extended Release 1 tab PO DAILY lansoprazole [Prevacid] 30 mg Capsule,Delayed Release(Dr/Ec) 30 mg PO DAILY Medi-Meclizine 25 mg tablet 25 mg PO TID PRN (Reason: dizziness) Qty: 30 0RF Discharge Orders: Discharge ED (Routine); Ordered 09/23/24 Ordered By: Rachid Foss Referrals: Roc Orantes, [Primary Care Provider] - 1-3 days Patient Instructions: Acute Bronchitis (ED), Wheezing (ED), Opioid Safety, Pain Management Activity Restrictions/Additional Instructions: Use the nebulizer solution you were prescribed every 4 hours while awake for the first 48 hours for the feel you needed or not. You may use it as you needed after that. Other medication as directed. Return for fever greater than 100 despite 2-3 more doses of antibiotics, worsening shortness of breath despite treatment, vomiting liquids or medications, other concerning symptoms. Coding Level of Care Code ED [employer] for Murtaza Briceño
[2024-09-23 04:30] VITALS: PULSE 91; RESP 18; O2SAT 97
[2024-09-23] MEDS: ipratropium-albuterol 3 mL Neb INHALATION (04:30)
[2024-09-23 04:34] VITALS: PULSE 92; RESP 18; O2SAT 97
[2024-09-23] MEDS: predniSONE 20 mg Tablet 60 MG PO (05:02)
[2024-09-23 05:05] LABS: Covid PCR NEGATIVE (Negative); Influenza A NEGATIVE (Negative); Influenza B NEGATIVE (Negative); Respiratory Syncytial Virus Ce NEGATIVE (Negative)
[2024-09-23 05:16] VITALS: BP 160/101; PULSE 96; O2SAT 95
== END 2024-09-23 05:18 | disposition home or self-care (01) ==
PROVIDERS: Emergency Provider Emergency Medicine; PCP Family Medicine
DX: J20.9 Acute bronchitis, unspecified (principal); J45.909 Unspecified asthma, uncomplicated; Z72.0 Tobacco use
CPT/HCPCS: 0241U; 71045; 94640; 99284; J7512